=== PATIENT | male | born 1990 | race American Indian/Alaskan Native ===

== ENCOUNTER 2019-04-22 06:59 | Day surgery (SDC) | payer OTHER ==
--- NOTE | 2019-04-22 07:56 | Anesthesia Day of Surgery ---
Anesthesia Day of Surgery - Day of Surgery Patient Examined: Yes Patient H&P Reviewed: Yes Patient is NPO: Yes
--- NOTE | 2019-04-22 07:57 | Anesthesia Consultation ---
Anesthesia Consult and Med Hx Date of service: 04/22/19 - Airway Anesthetic Teeth Evaluation: Good ROM Head & Neck: Adequate Mental/Hyoid Distance: Adequate Mallampati Class: Class II Intubation Access Assessment: Good - Pre-Operative Health Status ASA Pre-Surgery Classification: ASA2 Proposed Anesthetic Plan: MAC - Pulmonary Hx Smoking: No - Gastrointestinal Hx Gastroesophageal Reflux Disease: Yes - Endocrine Hx Liver Disease: Yes (Elevated LFTs. ? history of Hep B) - Hematic Hx Sickle Cell Disease: No
[2019-04-22] MEDS ORDERED: SODIUM CHLORIDE 0.9% 1000 ML 1,000 ML IV SCH (08:15)
[2019-04-22] MEDS ORDERED: LIDOCAINE MPF (2%) 20 MG/1 ML VIAL 5 ML ONE (09:00)
[2019-04-22] MEDS ORDERED: PROPOFOL 200 MG/20 ML VIAL IV ONE (09:18)
[2019-04-22] MEDS ORDERED: fentaNYL 100 MCG/2 ML INJ ONE (09:18)
--- NOTE | 2019-04-22 09:36 | Procedure Note ---
Date of procedure: 04/22/19 Pre-op diagnosis: GERD Post-op diagnosis: other (Mild to Moderate, Erosive Esophagitis/Gastritis/R/O Eosinophilic Esophagitis/R/O Celiac Disease/ No Peptic Ulcer disease noted) Procedure: EGD with Biopsy Anesthesia: MAC Surgeon: EZIO CONLEY Estimated blood loss: minimal Pathology: list Specimen disposition: to lab Condition: stable Disposition: same day (Treat with PPI. Avoid aspirin and NSAID for 4 days; resume home medication and follow up in 1 to 2 weeks ([phone]).)
--- NOTE | 2019-04-22 09:49 | Operative Report ---
PROCEDURE: Esophagogastroduodenoscopy with biopsy. INDICATIONS: The patient is a 28-year-old -[place] gentleman whose parents are from [facility]. The patient has been having GERD symptoms. EGD was done to assess for the issue problem, was done after getting informed consent with MAC anesthesia. PROCEDURE IN DETAIL: Instrument was passed through the hypopharynx into the esophagus, which showed some mild to moderate distal erosive esophagitis and biopsy was also done from the mid to the distal esophagus to rule out for eosinophilic esophagitis. The stomach did not show any gastric ulcers either in the straight or the retroverted view. The pylorus was patent. The duodenum in the first and second portion appeared normal. Biopsy was done from the second part to rule out for possible celiac disease. Additional biopsy was done from the gastric antrum, gastric body and angular incisura to rule out for atrophic gastritis. ASSESSMENT: Gastroesophageal reflux disease symptoms, rule out eosinophilic esophagitis, rule out celiac disease, mild to moderate erosive esophagitis, gastritis. No peptic ulcer disease noted and the patient had a patent pylorus. There was minimal bleeding associated with the procedure. No complications associated with the procedure. Procedure was done in the GI lab with assistance of the GI lab team, which included TRANG Ferrari as well as denise Akbar and with assistance of anesthesia. The patient will be asked to avoid aspirin and aspirin-related products for the next 4 days, otherwise resume home medication and will be treated with PPI and asked to follow up in the office in 1-2 weeks' time. 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 The patient has been asked to see a photovoltaic panel installer for that. JOB# [id number] CHEY/TARA
[2019-04-22 10:21] VITALS: BP 115/76
--- NOTE | 2019-04-22 14:12 | Post Anesthesia Evaluation ---
- Post Anesthesia Evaluation Patient Participated: Yes Airway Patent: Yes Stable Respiratory Function: Yes Nausea/Vomiting: No Temp > 96.8F: Yes Pain Manageable: Yes Adequeate Hydration: Yes Anesthesia Complications: No Block Receding Appropriately: Not Applicable Patient on Ventilator: No
== END 2019-04-22 07:00 | disposition home or self-care (01) ==
LOC: GIO 06:59
DX: K21.0 Gastro-esophageal reflux disease with esophagitis (principal); K29.70 Gastritis, unspecified, without bleeding; Z79.899 Other long term (current) drug therapy
CPT/HCPCS: 43239; 88305; 88342; J2704; J3010; J7030